=== PATIENT | male | born 1975 | race Caucasian/White ===

== ENCOUNTER 2017-01-11 11:33 | Emergency (ER) | payer SELFPAY ==
[2017-01-11 11:58] VITALS: BP 122/72
--- NOTE | 2017-01-13 12:51 | ED Elopement Review ---
ED Pt Elopement review - Call Back decision Pt Call Back Decision: No action required
== END 2017-01-11 20:00 | disposition left against medical advice (07) ==
LOC: ED 11:33
DX: H53.8 Other visual disturbances (principal); Z53.21 Procedure and treatment not carried out due to patient leaving prior to being seen by health care provider